=== PATIENT | male | born 1980 | race Caucasian/White ===

== ENCOUNTER 2018-11-10 14:44 | Emergency (ER) | payer BC ==
[2018-11-10 14:49] VITALS: TEMP 97.8; BMI 36.2
[2018-11-10] MEDS ORDERED: ACETAMINOPHEN 1000 MG/100 ML VIAL (NON FORMULARY) IVPB ONE (16:34)
[2018-11-10] MEDS ORDERED: METOCLOPRAMIDE HCL INJECTION 10 MG/2 ML VIAL IVPB ONE (16:34)
[2018-11-10] MEDS ORDERED: SODIUM CHLORIDE 1,000 ML IV STA (16:50)
[2018-11-10 16:52] LABS: BASO % 0.2 % (0-2.0); EOS % 0.9 % (0-4.5); HEMATOCRIT 45.7 % (35.4-49); HEMOGLOBIN 15.5 GM/dL (11.7-16.9); LYMPH % 16.8 % (8-40); MEAN CELL VOLUME 91.2 fl (80-96); MEAN PLT VOLUME 8.5 fl (7.5-11.1); MONO % 5.6 % (3.8-10.2); NEUT % 76.5 % (42.8-82.8); PLATELET COUNT 241 K/MM3 (134-434); RBC 5.02 M/mm3 (4.00-5.60); RDW 12.9 % (11.9-15.9); WHITE BLOOD COUNT 6.2 K/mm3 (4.0-10.0)
--- NOTE | 2018-11-10 17:02 | PDOC ---
Documentation entered by Dewey Lorenzo SCRIBE, acting as scribe for Faraz Odonnell MD. Faraz Odonnell MD: This documentation has been prepared by the Bj llanes Daniel, SCRIBE, under my direction and personally reviewed by me in its entirety. I confirm that the documentation accurately reflects all work, treatment, procedures, and medical decision making performed by me. Attending Attestation - Resident Resident Name: Bijan Denton - ED Attending Attestation I have performed the following: I have examined & evaluated the patient, The case was reviewed & discussed with the resident, I agree w/resident's findings & plan, Exceptions are as noted - HPI HPI: 11/10/18 16:29 The patient is a 37 year old male with no past medical history here today for evaluation of chest pain. The patient reports that he was walking down the stairs at approximately 1:30 pm when he developed sharp left sided 10/10 chest pain with associated headache and blurry vision. He reports that this episode lasted for about 15 minutes before subsiding. Pt now has intermittent 6/10 chest pain. Denies any residual WHALEN or blurred vision. Denies any SOB. Denies leg swelling. Denies F/C. Denies N/V. Pt denies family history of [place]. Denies smoking. No h/o DVT/PE. He notes that a similar episode happened once last year but did not seek medical attention. Patient denies lightheadedness. Denies fever, chills. Denies palpitations. Denies nausea, vomiting, diarrhea, abdominal pain. Allergies: NKA
[2018-11-10] MEDS ORDERED: METOCLOPRAMIDE HCL INJECTION 10 MG/2 ML VIAL ONE (17:10)
[2018-11-10] MEDS ORDERED: ACETAMINOPHEN INJECTION 100 ML IVPB ONE (17:10)
--- NOTE | 2018-11-10 17:18 | PDOC ---
History of Present Illness - General Chief Complaint: Chest Pain Stated Complaint: CHEST PAIN/HEAD PAIN Time Seen by Provider: 11/10/18 16:24 - History of Present Illness Initial Comments: 11/10/18 17:16 The patient is a 37 year old male with no past medical history here today for evaluation of chest pain. The patient reports that he was walking down the stairs at approximately 1:30 pm when he developed sharp left sided 10/10 chest pain with associated headache and blurry vision. He reports that this episode lasted for about 15 minutes before subsiding. Pt now has intermittent 6/10 chest pain. Denies any residual WHALEN or blurred vision. Denies any SOB. Denies leg swelling. Denies F/C. Denies N/V. Pt denies family history of [place]. Denies smoking. No h/o DVT/PE. He notes that a similar episode happened once last year but did not seek medical attention. Patient denies lightheadedness. Denies fever, chills. Denies palpitations. Denies nausea, vomiting, diarrhea, abdominal pain. Allergies: NKA Past History - Past Medical History Allergies/Adverse Reactions: Allergies Allergy/AdvReac Type Severity Reaction Status Date / Time No Known Allergies Allergy Verified 11/10/18 14:48 Home Medications: Ambulatory Orders NK [No Known Home Medication] 11/10/18 COPD: No - Suicide/Smoking/Psychosocial Hx Smoking History: Never smoked Review of Systems - Review of Systems Comments:: 11/10/18 17:16 "GENERAL/CONSTITUTIONAL: No fever or chills. No weakness. HEAD, EYES, EARS, NOSE AND THROAT: No change in vision. No ear pain or discharge. No sore throat. CARDIOVASCULAR: + chest pain, no shortness of breath, no loss of consciousness RESPIRATORY: No cough, wheezing, or hemoptysis. GASTROINTESTINAL: No nausea, vomiting, diarrhea or constipation. GENITOURINARY: No dysuria, frequency, or change in urination. MUSCULOSKELETAL: No joint or muscle swelling or pain. No neck or back pain. SKIN: No rash NEUROLOGIC: + WHALEN, No vertigo, no change in strength/sensation. ENDOCRINE: No increased thirst. No abnormal weight change. HEMATOLOGIC/LYMPHATIC: No anemia, easy bleeding, or history of blood clots. ALLERGIC/IMMUNOLOGIC: No hives or skin allergy. *Physical Exam - Vital Signs Last Vital Signs Temp Pulse Resp BP Pulse Ox 97.8 F 62 18 128/75 99 11/10/18 14:46 11/10/18 14:46 11/10/18 14:46 11/10/18 14:46 11/10/18 16:34 - Physical Exam Comments: 11/10/18 17:16 "GENERAL: Awake, alert, and fully oriented, in no acute distress. HEAD: No signs of trauma EYES: PERRLA, EOMI, sclera anicteric, conjunctiva clear ENT: Auricles normal inspection, hearing grossly normal, nares patent, oropharynx clear without exudates. Moist mucosa NECK: Nontender, no stepoffs, Normal ROM, supple, no lymphadenopathy, JVD, or masses LUNGS: Breath sounds equal, clear to auscultation bilaterally. No wheezes, and no crackles HEART: Regular rate and rhythm, normal S1 and S2, no murmurs, rubs or gallops ABDOMEN: Soft, nontender, normoactive bowel sounds. No guarding, no rebound. No masses EXTREMITIES: Normal range of motion, no edema. No clubbing or cyanosis. No cords, erythema, or tenderness NEUROLOGICAL: Cranial nerves II through XII intact. 5/5 strength and sensation in all extremities, Normal speech, normal gait, normal cerebellar function SKIN: Warm, Dry, normal turgor, no rashes or lesions noted. Heart Score/ECG Review - History History: Slightly suspicious - Electrocardiogram EKG: Normal - Age Age: </= 45 - Risk Factors Risk Factors Heart Score: Yes Hx Obesity Based on the list above the patient has:: 1-2 risk factors - Troponin Troponin: </= normal limit - Score Heart Score - Total: 1 - ECG Impressions Comment:: 11/10/18 17:17 NSR, no LISANDRO/STDs, no TWIs, axis wnl, intervals wnl, rate 60 ED Treatment Course - LABORATORY CBC & Chemistry Diagram: 11/10/18 16:36 11/10/18 16:36 - ADDITIONAL ORDERS Additional order review: 11/10/18 16:36 RBC 5.02 MCV 91.2 MCHC 34.0 RDW 12.9 MPV 8.5 Neutrophils % 76.5 Lymphocytes % 16.8 Monocytes % 5.6 Eosinophils % 0.9 Basophils % 0.2 - RADIOLOGY Radiology Studies Ordered: Category Date Time Status HEAD CT WITHOUT CONTRAST [CT] Stat CT Scan 11/10/18 16:33 Ordered CHEST PA & LAT [RAD] Stat Radiology 11/10/18 16:33 Ordered Medical Decision Making - Medical Decision Making 11/10/18 17:17 37 M with chest pain and WHALEN. WHALEN now resolved, with no neuro deficits. Pt with mild residual chest pain but normal EKG. Will r/o ACS with serial trops. PERC score 0. - Labs, trop x2 - CXR - CT head - Tylenol, reglan, IVF 11/10/18 17:35 Labs wnl, trop negative x1 11/10/18 18:20 CT head with no acute findings CXR clear on my read pending 2nd troponin 11/10/18 19:23 2nd trop negative Pt is well appearing, with normal vitals. Clinically stable for DC at this time. I discussed the physical exam findings, ancillary test results and final diagnoses with the patient. I answered all of the patient's questions. The patient was satisfied with the care received and felt comfortable with the discharge plan and treatment plan. The patient agrees to follow up with the primary care physician within 24-72 hours. *DC/Admit/Observation/Transfer Diagnosis at time of Disposition: Chest pain, Headache, Diaphoresis - Discharge Dispostion Disposition: HOME Condition at time of disposition: Good - Referrals Referrals: Inder Barnett MD [Staff Physician] - - Patient Instructions Printed Discharge Instructions: DI for Atypical Chest Pain Additional Instructions: Your bloodwork and imaging today were normal. However, this does not rule out all heart conditions or other serious medical problems. You must follow up with your primary doctor within 1 week and see a metal sander as soon as possible for further evaluation of your chest pain. If you experience worsening chest pain, shortness of breath, headache, nausea, vomiting, or any other concerning symptoms, return to the ER immediately. Sonja anlisis de marco antonio e imgenes de hoy fueron normales. Sin embargo, esto no excluye todas las afecciones cardacas u otros problemas mdicos graves. Debe realizar un seguimiento con conrad mdico de atencin primaria dentro de 1 semana y consultar a un cardilogo lo antes posible para madi evaluacin adicional de conrad dolor en el pecho. Si experimenta un empeoramiento del dolor en el pecho, dificultad para respirar , dolor de marko, nuseas, vmitos o cualquier otro sntoma preocupante, regrese a la misael de emergencias de inmediato. - Post Discharge Activity - Attestations Physician Attestion: 11/10/18 17:41 I, Dr. Faraz Odonnell MD, attest that this document has been prepared under my direction and personally reviewed by me in its entirety. I further attest, that it accurately reflects all work, treatment, procedures and medical decision -making performed by me.
[2018-11-10 17:27] LABS: ALBUMIN 3.8 g/dl (3.4-5.0); ALK PHOS 76 U/L (45-117); ANION GAP 7 MMOL/L (8-16); BILIRUBIN,TOTAL 0.7 mg/dL (0.2-1); BLOOD UREA NITROGEN 11.6 mg/dL (7-18); CALCIUM 8.8 mg/dL (8.5-10.1); CHLORIDE 108 mmol/L (98-107); CO2 25 mmol/L (21-32); CREATININE 0.8 mg/dL (0.55-1.3); GLUCOSE,RANDOM 95 mg/dL (74-106); LIPASE 152 U/L (73-393); POTASSIUM 4.1 mmol/L (3.5-5.1); SGOT/AST 19 U/L (15-37); SGPT/ALT 47 U/L (13-61); SODIUM 140 mmol/L (136-145); TOT PROT 6.8 g/dl (6.4-8.2)
[2018-11-10] MEDS ORDERED: FAMOTIDINE 20 MG/50 ML IVPB 20 MG/50 ML MG IVPB ONE ×2 (18:07→18:46)
[2018-11-10] MEDS ORDERED: MAG HYDROX/AL HYDROX/SIMETH 30 ML UNIT-DOSE CUP PO ONE (18:07)
[2018-11-10] MEDS ORDERED: MAG HYDROX/AL HYDROX/SIMETH 30 ML UNIT-DOSE CUP ONE (18:45)
[2018-11-10 20:23] VITALS: BP 127/79; PULSE 61
--- NOTE | 2018-11-11 11:52 | EKG ---
Test Reason : Blood Pressure : / mmHG Vent. Rate : 060 BPM Atrial Rate : 060 BPM P-R Int : 170 ms QRS Dur : 090 ms QT Int : 392 ms P-R-T Axes : 018 019 008 degrees QTc Int : 392 ms NORMAL SINUS RHYTHM NORMAL ECG NO PREVIOUS ECGS AVAILABLE Confirmed by CARYN JARVIS MD ([id number]) on 11/11/2018 11:51:47 AM Referred By: Confirmed By:CARYN JARVIS MD
== END 2018-11-10 20:24 | disposition home or self-care (01) ==
LOC: JER 14:44
PROC: 3E0337Z Introduction of Electrolytic and Water Balance Substance into Peripheral Vein, Percutaneous Approach (ICD-10-PCS; principal; 2018-11-10)
PROC: 3E033GC Introduction of Other Therapeutic Substance into Peripheral Vein, Percutaneous Approach (ICD-10-PCS; 2018-11-10)
PROC: 3E033GC Introduction of Other Therapeutic Substance into Peripheral Vein, Percutaneous Approach (ICD-10-PCS; 2018-11-10)
PROC: 3E033NZ Introduction of Analgesics, Hypnotics, Sedatives into Peripheral Vein, Percutaneous Approach (ICD-10-PCS; 2018-11-10)
DX: R07.9 Chest pain, unspecified (principal); R51 Headache; R61 Generalized hyperhidrosis
CPT/HCPCS: 36415; 70450-TC; 71046-TC-FY; 80053; 82550; 83690; 83880; 84484; 85025; 93005; 93010; 99284-25; J0131; J7030